=== PATIENT | male | born 1970 | race Caucasian/White ===

== ENCOUNTER 2024-11-12 06:21 | Inpatient (IN) ==
--- NOTE | 2024-08-28 16:25 | History & Physical Report ---
Date of Service August 28, 2024 Assessment & Plan (1) Osteoarthritis of right hip: Plan: PRE-OP Diagnosis: Right hip osteoarthritis Planned Procedure: Right total hip arthroplasty PLAN: Patient is scheduled to undergo this procedure at the [facility] with a 23-hour observation admission with Dr. Beckham on July. Risks and complications of the procedure such as: Infection, bleeding, pain, scarring, nerve blood vessel damage, weakness, wound problems, stiffness, incomplete relief of symptoms, hardware failure, hardware loosening, wear, fracture, tendon or ligament injury, dislocation, leg length inequality, blood clots, Embolism, heart attack, stroke and were explained to the patient at his visit today. Informed consent to perform the procedure was obtained. An order form was sent to the shelter and patient obtained a CBC with differential, complete metabolic panel, PT/INR, blood type and screen, urinalysis, urine culture and sensitivity, EKG, and a nasal culture for MRSA. Patient was also cleared by the medical provider at the institution. Patient states that he plans on doing therapy once a month when the physical therapist comes to the present otherwise, he plans on doing it on his own.. . Patient will be provided with a walker, raised toilet seat, shower chair and a hip kit by the medical staff at the present. During today's visit we reviewed the total hip packet as well as precautions. We discussed discharge planning from the hospital. I advised the patient that upon discharge from hospital we will prescribe a narcotic pain medication and anti-inflammatory. Patient will also be on an 81 mg aspirin twice daily for blood clot prevention. Patient will be scheduled for 2-week postoperative follow-up visit with myself on September 29 at 1:30 PM. This chart was completed utilizing Geliy[employer] voice recognition software. Grammatical errors, random word insertions, pronoun errors, and in complete sentences are an occasional consequence of the system. Any questions or concerns about the content, text, or information contained within the body of this dictation should be addressed directly to the physician for clarification. History of Present Illness Chief Complaint: Chief Complaint: Right hip pain Primary Care Provider: PERLA Perez History of Present Illness (including history relevant to procedure): This 54-year-old male inmate from [facility] [place] presents to the clinic today for his preoperative history and physical. Patient complains of a 2-year history of significant right sided hip pain that affects his groin lateral and posterior aspect of his hip. Patient states he has tried oral steroids, oral anti- inflammatories and some therapy that he did on his own with without relief of his pain. He states that now he is unable to do his normal workouts and noticed his that he has significant limitations with rotation of his hip. Patient is electing to proceed with surgical interventions at this time. Review Of Systems: A 12 point review of systems is performed and is unremarkable except for those things stated in the HPI past medical history. Past Medical History: Problems: Arthritis of right hip Rheumatoid disease HTN (hypertension) Right hip pain Hypercholesterolemia Procedure History Procedure Procedure Date Comments right inguinal hernia repair Allergies and Sensitivities: NKA Current Home Meds: (Last Updated 08/28 13:02) FLUoxetine 20 mg amLODIPine 10 mg aspirin (Adult Aspirin) 81 mg PO Daily baclofen 20 mg PO diclofenac 50 mg gabapentin 800 mg and 100 mg hydrOXYzine 25 mg lidocaine-prilocaine topical (lidocaine-prilocaine 2.5%-2.5% topical cream) losartan (losartan 100 mg oral tablet) 100 mg PO Daily metoprolol (metoprolol extended release) 25 mg predniSONE 20 mg PO Daily rosuvastatin 10 mg PO Daily Initial Wt: 08/28 94.0 kg 207 lb Allergies Allergy/AdvReac Type Severity Reaction Status Date / Time No Known Drug Allergies Allergy Unknown NONOE Verified 08/27/14 13:49 Home Medications Medication Instructions Recorded Confirmed Type SALSALATE 750 mg PO TID ##0 08/27/14 History Past Med/Surg History Problem List (Updated 08/28/24 @ 16:24 by Anselmo De Jesus PA-C) Osteoarthritis of right hip Inguinal hernia (Chronic) Incarcerated inguinal hernia (Acute) Incarcerated inguinal hernia (Acute) Review of Systems All systems reviewed & are unremarkable except as noted in Subjective Physical Exam Physical Exam: Physical Exam: (relevant to the procedure, including heart and lung evaluation) General:'Alert and oriented x 3 with proper grooming and hygiene Eyes: Pupils are equal reactive to light with accommodation. Extraocular wounds are intact Throat: Posterior pharynx clear with absence of edema, erythema or exudate. Dentition is appropriate. Cardiac: Regular rate and rhythm with no murmurs or gallops appreciated Lungs: Clear to auscultation throughout with no wheezing, rales or rhonchi Abdomen: Mildly obese, nondistended, nontender with NABS Extremities: Right hip: Flexion is limited to 100 degrees, internal rotation to 0 degrees and external rotation to 25 degrees. Logroll test causes discomfort in the groin. Stinchfield test positive. Impingement test positive. Patient walks with antalgic gait Neuro: Cranial nerves II through XII are intact no motor or sensory deficit Skin: Normal in appearance with no open skin areas or discharge Results & Data Diagnostic Findings Studies (relevant to the procedure): 3views [facility] theright [facility]obt[facility] show hip arthritis interval worsening. Femoral head flattened. Cysts accumulated in the bone.
--- NOTE | 2024-09-14 08:31 | Communication Note ---
Patient scheduled for right RODOLFO with Dr Beckham on 09/17/24. Per 09/14/24 phone call with PERLA Perez- patient tested Covid positive 09/10/24. Patient is asymptomatic. Was quarantined x 5 days and now will mask for 5 days per PERLA Perez. Unless surgery is deemed urgent/emergent and medical necessity is provided- patient will need rescheduled to 09/21/24 or later. Surgeon's office and PERLA Perez informed.
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
[~2024-11-12 06:21] MED LIST: ROPIVACAINE 0.5% HCL/PF 246 MG, Ketorolac (*for OR use only*) 30 MG, EPINEPHrine 30MG/3... INFIL SCH
[2024-11-12] MEDS ORDERED: BUPIVACAINE 0.5 % 5 MG/1 ML PF 10ML VIAL ONE (06:24)
[2024-11-12] MEDS: ACETAMINOPHEN 500 MG TAB PO SCH ×2 (06:50→15:47)
[2024-11-12] MEDS: traMADol HCL 50 MG TABLET PO SCH (06:51)
[2024-11-12] MEDS: FAMOTIDINE 20 MG TAB PO SCH (06:51)
[2024-11-12] MEDS: CeleBREX 200 MG CAP PO SCH (06:51)
[2024-11-12] MEDS: Scopolamine 1 MG TDSY TD SCH (06:53)
[2024-11-12] MEDS: dexAMETHasone**PF** 10 MG/ML VIAL IV SCH (06:53)
[2024-11-12] MEDS: LR 500ML BOLUS, THEN 15ML/HR IV SCH (06:53)
[2024-11-12] MEDS: LR 60ML/HR IV SCH (06:54)
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
--- OUTSIDE RECORDS SUMMARY | 2024-11-12 07:18 | External Medical Summary | Continuity of Care Document ---
Author Name Unknown Organization [facility] [id number] Address [address] [place] [phone] Care Team Providers Care Manager Loss Prevention Name Role Phone Christine Worrell Primary Care Physician [phone] Encounter [facility] [id number] Date(s): 08/28/24 - 08/28/24 [facility] [address] [id number] [facility] Medicine [address] [place] [id number] Encounter Diagnosis Pre-op evaluation(Discharge Diagnosis) - 08/28/24 Right hip pain(Discharge Diagnosis) - 08/28/24 Discharge Disposition: Home or Self Care Attending Physician: FATOUMATA De Jesus Dennis Referring Physician: MD Chapincito, Deangelo Gunderson Allergies, Adverse Reactions, Alerts No Known Allergies [...] Start Date: 08/28/24 Status: Ordered Mental Status 08/28/24 Barriers to Learning one year None evide nt Mandatory Health Literacy Documentation Yes Health Literacy Communication Barriers N ever Primary Language Indonesian Problem List Condition Confirmation Course Effective Dates Status Health [facility] Informant Arthritis of right hip Confirmed Active Right hip pain Confirmed Active HTN (hypertension) Confirmed Active Rheumatoid disease Confirmed Active Diagnosis Diagnosis Type Effective Dates Health Status Clinical Service Informant Pre-op evaluation Discharge Diagnosis 08/28/24 Right hip pain Discharge Diagnosis 08/28/24 Vital Signs Most recent to oldest [Reference Range]: 1 Height 173 cm (08/28/24 12:54 PM) Patient Weight 94 kg (08/28/24 12:54 PM) Body Mass Index 31.41 kg/m2 (08/28/24 12:54 PM) Temperature [36.5-37.9 DegC] 36.4 DegC *LOW* (08/28/24 12:54 PM) Heart Rate 80 bpm (08/28/24 12:54 PM) Blood Pressure 160/98mmHg (08/28/24 12:54 PM) Cuff Pulse Pressure 62 mmHg (08/28/24 12:54 PM) Social History Social History Type Response Smoking Status Never smoked cigaret reji Sex Male Sex Representation Male (finding) Patient Care team information Care Team Personnel Name: MD Gm, Christine Penn Position: Referring Member Role: Primary Care Provider Address: [facility] Department of [address]
[2024-11-12] MEDS ORDERED: fentaNYL citrate PF 100 MCG/2 ML VIAL ONE (07:57)
[2024-11-12] MEDS ORDERED: MIDAZOLAM HCL 1 MG/ML 2ML VIAL ONE ×2 (07:57→07:58)
[2024-11-12] MEDS ORDERED: fentaNYL citrate PF 100 MCG/2 ML VIAL IV PRN (08:22)
[2024-11-12] MEDS ORDERED: ONDANSETRON INJ 2 MG/ML 2 ML VIAL IV PRN ×2 (08:22→11:53)
[2024-11-12] MEDS ORDERED: ATROPINE SULFATE 0.1 MG/ML 10ML SYR IV PRN (08:22)
[2024-11-12] MEDS ORDERED: ePHEDrine sulfate 50 MG/ML AMP IV PRN (08:22)
--- NOTE | 2024-11-12 09:11 | History & Physical Bridge Note ---
Date of Service November 12, 2024 History & Physical Bridge Note I have examined the patient, reviewed the History & Physical and in the interval since the performance of the History & Physical I have noted the following changes of clinical significance: no changes noted
[2024-11-12] MEDS: TRANEXAMIC ACID 1,000 MG **IV Pre-op IV SCH (09:20)
[2024-11-12] MEDS ORDERED: PROPOFOL IV EMULSION 10 MG/ML 100 ML VIAL IV ONE (09:31)
[2024-11-12] MEDS: ceFAZolin 2000MG 2,000 MG/15 ML SYR IV SCH ×2 (09:49→19:45)
[2024-11-12] MEDS ORDERED: ePHEDrine sulfate 50 MG/ML AMP ONE (10:03)
[2024-11-12] MEDS: ORTHO JOINT ANESTHETIC ONE (10:19)
[2024-11-12] MEDS: ROPIVACAINE 0.5% HCL/PF 246 MG, Ketorolac (*for OR use only*) 30 MG, EPINEPHrine 30MG/3... INFIL SCH (10:19)
[2024-11-12] MEDS: TRANEXAMIC ACID 1,000 MG **IV Intra-op IV SCH (11:05)
--- NOTE | 2024-11-12 11:14 | Operative Report ---
Post Operative Report Pre & Post Diagnosis Operation Date: 11/12/24 08:50 preoperative diagnosis: Right hip osteoarthritis with large supra-acetabular cysts Postoperative diagnosis: Right hip osteoarthritis with large supra-acetabular cysts I identified the patient and participated in the time-out.: Yes Procedure Operation Date: 11/12/24 08:50 1. right total hip arthroplasty 2. bone grafting of supra-acetabular cysts Surgeon Deangelo Beckham MD Coding Validator Kemar Latham DO and JOHNNY De Jesus PA-C Estimated Blood Loss 150 Findings Consistent with Post-Op Diagnosis Specimens right femoral head Anesthesia Type Spinal MAC Complications none Disposition Disposition: Recovery Room Indications 54-year-old male, with right hip osteoarthritis refractory to conservative management. X-rays demonstrate [id number] disease with large cysts in the acetabulum and femoral head, complete destruction of the joint space superiorly, and subchondral sclerosis. Description of Procedure Patient was identified in the preoperative holding area where the surgical site, right hip, was marked. A spinal anesthetic was placed, then the patient was brought back to the main operating room, placed in the operating table and moved into the lateral decubitus position. Axillary roll was placed. All bony prominences were padded. Perioperative antibiotics and tranexamic acid 1 gram IV were administered. The operative extremity was prepped and draped in the normal sterile fashion. Prior to incision a multidisciplinary timeout was called. All in the room were in agreement. We began by making an incision for a posterior approach to the hip. We dissected down through subcutaneous tissues to the level of the fascia. The fascia was incised in line with the incision. Charnley bow was placed. Fatty tissue was reflected posteriorly off the back of the greater trochanter to expose the piriformis and short external rotators of the hip. Quadratus femoris was taken off the femur subperiosteally. The piriformis and short external rotators were dissected off the posterior aspect of the hip. A box cut was made in the capsule. Inferior hip capsule was released off the femur. The femoral head was dislocated. The femoral neck cut was made at our preoperative template. The acetabulum was then exposed. The labrum was sharply excised. Contents of the cotyloid fossa were removed with electrocautery. We then began reaming at a size 8 mm less than our preoperative template. We reamed up by 1 [address] increments [address] the way up to a size 56 mm cup. This gave us good bleeding cancellus bone circumferentially. The acetabulum was then irrigated out, dried and inspected. This demonstrated 2 large supra-acetabular cysts and 1 smaller cyst posterior superior. A curved curette was used to explore the cyst. The 2 larger cyst had quite a deep cavity and approximately 1 cm in diameter and approximately 4 to 6 mm in depth. All the soft tissue was removed with a curved curette. I reirrigated out the acetabulum. We then used bone graft from the acetabular reamings and packed this into the cyst cavities. Next, the real [place] Gription cup was then impacted down into position with 45 degrees of lateral opening and 25 degrees of anteversion. A single cancellous bone screw was placed up into the ilium. Excellent fixation was obtained. A trial liner for a 36 mm femoral head was then placed. Next we turned our attention to the femur. The lateral neck was removed with a box osteotome. Intramedullary guide was used to establish the intramedullary canal. We then broached all the way up to a size 3. We began trialing with a high offset neck and a +8.5 head. Hip was reduced. Leg lengths were symmetric. The hip was stable in extension and external rotation, and stable in the sleeper position. At 90 degrees of hip flexion the hip could be internally rotated 55 degrees before levering out of the cup. I was very happy with the stability exam. Therefore the hip was dislocated and the femoral trial was r emoved. The acetabulum was re-exposed, and the trial liner was removed. [place] hole eliminator screw was placed. An Altrx polyethylene liner for a 36 mm femoral head was then impacted into the shell. The locking mechanism was checked to ensure that it had engaged which it had. The femur was re-exposed. The femoral canal was irrigated and dried. The real Actis femoral stem was opened up. This was impacted down into position. The femoral head was opened up and gently impacted down onto the trunnion. The hip was atraumatically reduced. Another 1 gram of IV tranexamic acid was started prior to closure. The wound was irrigated out with sterile Betadine solution. The periarticular injection cocktail was then placed. The short external rotators, piriformis, and posterior capsule were repaired through drill holes in the greater trochanter using #2 Vicryl. The fascia was run with a looped #1 PDS. The subcutaneous layer was closed with #1 PDS. The dermal layer was closed with 2-0 Vicryl. Zip line was used for the skin followed by a Silverlon dressing. A compressive dressing was then placed. The patient was then rolled supine. Leg lengths were rechecked and were symmetric. An abduction pillow was placed. Sedation was lifted and the patient was transferred to the recovery room in stable condition. Summary of implants: Depuy [place] Gription Acetabular Shell Sector Cup, 56 mm outer diameter [place] Cancellous bone screw, 6.5 x 35 mm Topanga hole eliminator [place] Altrx Polyethylene Acetabular Liner, Neutral, with a 36 mm inner diameter DePuy Actis collared cementless Femoral stem, 12/14 taper, size 3 high offset 36 mm ceramic femoral head with +8.5 offset Postoperative course: Patient will be admitted overnight from the recovery room. Patient will be weightbearing as tolerated with posterior hip precautions. Aspirin for DVT prophylaxis I attest to the content of the Intraoperative Record and any orders documented therein. Any exceptions are noted below.
[2024-11-12] MEDS ORDERED: PROPOFOL IV EMULSION 10 MG/ML 20 ML VIAL IV ONE ×2 (11:37)
[2024-11-12] MEDS ORDERED: METOCLOPRAMIDE HCL INJ 5 MG/ML 2 ML VIAL IV PRN (11:53)
[2024-11-12] MEDS ORDERED: MAGNESIUM HYDROXIDE SUSP 30 ML UDC PO PRN (11:53)
[2024-11-12] MEDS ORDERED: bisacodyL 10 MG SUPP PR PRN (11:53)
[2024-11-12] MEDS ORDERED: ALUMINUM/MAGNESIUM SUSP 30 ML UDC PO PRN (11:53)
[2024-11-12] MEDS ORDERED: TAMSULOSIN HCL 0.4 MG CAP PO PRN (11:53)
[2024-11-12] MEDS ORDERED: NALOXONE HCL 0.4 MG/1 ML VIAL/CARP IV PRN (11:53)
[2024-11-12] MEDS ORDERED: diphenhydrAMINE 50 MG/ML VIAL IV PRN (11:53)
--- NOTE | 2024-11-12 11:53 | Operative Report ---
Post Operative Report Pre & Post Diagnosis Operation Date: 11/12/24 08:50 Pre-Op Diagnosis: Right Hip Osteoarthritis Post-Op Diagnosis: Right Hip Osteoarthritis I identified the patient and participated in the time-out.: Yes Procedure Operation Date: 11/12/24 08:50 Actual Procedures p Right Total Hip Arthroplasty with Bone Grafting of Supraacetabular, Unceme nted(Right) - Deangelo Beckham MD Surgeon Deangelo Beckham MD Production Administrative Assistant Kemar Latham DO and JOHNNY De Jesus PA-C Estimated Blood Loss 150 Findings Consistent with Post-Op Diagnosis Specimens femoral head Description of Procedure I was present during the entire case assisting with positioning, prepping, draping, wound retraction, wound closure, dressing and abduction pillow pl acement. Fellow also present. I served as an extra set of hands during the case. Please see Dr. Beckham procedure note for specifics of the case. I attest to the content of the Intraoperative Record and any orders documented therein. Any exceptions are noted below.
--- NOTE | 2024-11-12 11:53 | Operative Report ---
Post Operative Report Pre & Post Diagnosis Operation Date: 11/12/24 08:50 Pre-Op Diagnosis: Right Hip Osteoarthritis Post-Op Diagnosis: Right Hip Osteoarthritis I identified the patient and participated in the time-out.: Yes Procedure Operation Date: 11/12/24 08:50 Actual Procedures p Right Total Hip Arthroplasty with Bone Grafting of Supraacetabular, Unceme nted(Right) - Deangelo Beckham MD Surgeon Deangelo Beckham MD Enterprise Application Analyst Kemar Latham DO and JOHNNY De Jesus PA-C Estimated Blood Loss 150 Findings Consistent with Post-Op Diagnosis Specimens Right femoral head Description of Procedure The patient was brought to the operative suite where he underwent sedation after undergoing spinal anesthesia preoperatively. He was positioned in the left lateral decubitus position. The right lower extremity was prepped and draped in the usual sterile fashion. A surgical timeout was performed. Patient underwent a right total hip arthroplasty with supra-acetabular cyst bone grafting. Please see Dr. Beckham's operative report for full details. I was present and assisted with patient positioning, limb positioning, soft tissue retraction, hemostasis, hardware placement, wound closure, postoperative dressing placement. The patient was awakened and taken to the recovery room in satisfactory condition I attest to the content of the Intraoperative Record and any orders documented therein. Any exceptions are noted below.
[2024-11-12] MEDS ORDERED: ONDANSETRON INJ 2 MG/ML 2 ML VIAL ONE (11:54)
[2024-11-12] MEDS ORDERED: METOPROLOL TARTRATE 25 MG TAB PO PRN (11:56)
--- NOTE | 2024-11-12 12:40 | XRay Report ---
XR pelvis 1-2V routine CLINICAL HISTORY: In PACU - Post Surgical COMPARISON: 08/28/2024 FINDINGS: Interval right hip prosthesis shows no hardware complication. There is expected soft tissu e gas. Stable multiple small metallic foreign bodies at the right mid thigh. IMPRESSION: Unremarkable postoperative exam. ACT 112: Negative or not required by law. Electronically signed by: Rambo Nina M.D. 11/12/2024 12:38 PM
--- NOTE | 2024-11-12 12:53 | Anesthesiology Progress Note ---
Date of Service November 12, 2024 Anesthesia Post Procedure Vital Signs Vital Signs: Temp Pulse Resp BP Pulse Ox O2 Del Method O2 Flow Rate 11/12/24 12:20 72 19 142/88 H 96 Room Air 11/12/24 12:10 72 15 106/75 94 Oxymask 5 11/12/24 12:00 71 15 95/70 L 94 Oxymask 5 11/12/24 11:52 36.5 C 76 15 93/72 L 94 Oxymask 5 11/12/24 06:41 36.5 C 143/97 H Pain Intensity Right Hip: Pain Intensity: 9 Transfer of Care Handoff Completed per policy Notes Mental Status: alert / awake / arousable Patient Amnestic to Procedure: Yes Nausea / Vomiting: adequately controlled Pain: adequately controlled Airway Patency, RR, SpO2: stable & adequate BP & HR: stable & adequate Hydration State: stable & adequate Neuraxial Anesthesia: was administered and sensory block is resolving Anesthetic Complications: no major complications apparent and Pt Satisfied with anesthetic care
[2024-11-12] MEDS: KETOROLAC TROMETHAMINE 15 MG/ML VIAL IV SCH (15:48)
[2024-11-12] MEDS: GABAPENTIN 800 MG TAB PO SCH (15:48)
[2024-11-12] MEDS: Scopolamine CHECK PATCH PLACEMENT SCH (15:48)
[2024-11-12] MEDS: oxyCODONE HCL IR 5 MG TAB (IMMEDIATE RELEASE) PO PRN (17:45)
[2024-11-12] MEDS: BACLOFEN 20 MG TAB PO SCH (20:37)
[2024-11-12] MEDS: DOCUSATE SODIUM 100 MG CAP PO SCH (20:37)
[2024-11-12] MEDS: SENNA 8.6 MG TAB PO SCH (20:38)
[2024-11-12] MEDS: FLUoxetine HCL 20 MG CAP PO SCH (20:39)
[2024-11-12] MEDS: hydrOXYzine HCl 25 MG TAB PO SCH (20:39)
[2024-11-12] MEDS: ROSUVASTATIN CALCIUM 10 MG TAB PO SCH (20:40)
[2024-11-13 06:05] LABS: Basophils # (auto) 0.02 K/uL (0.00-0.20); Basophils % (auto) 0.1 %; Hematocrit (blood only) 33.9 % (42.0-52.0); Hemoglobin 11.7 g/dl (14.0-18.0); Immature Granulocytes # (auto) 0.09 K/uL (0.01-0.20); Immature Granulocytes % (auto) 0.6 %; Lymphocytes # (auto) 0.62 K/uL (1.20-3.40); Lymphocytes % (auto) 4.1 %; Mean Corpuscular Hemoglobin 30.3 pg (25.0-34.0); Mean Corpuscular Hgb Conc 34.5 g/dL (32.0-36.0); Mean Corpuscular Volume 87.8 fL (80.0-100.0); Mean Platelet Volume 8.4 fL (9.4-12.4); Monocytes # (auto) 1.32 K/uL (0.11-0.59); Monocytes % (auto) 8.7 %; Neutrophils # (auto) 13.06 K/uL (1.40-6.50); Neutrophils % (auto) 86.5 %; Platelet Count 252 K/uL (130-400); RDW Coefficient of Variation 13.4 % (11.5-14.5); RDW Standard Deviation 43.1 fL (36.4-46.3); Red Blood Count 3.86 M/uL (4.70-6.10); White Blood Count 15.11 K/ul (4.8-10.8)
[2024-11-13 06:32] LABS: BUN Creatinine Ratio 16.5 (10-20); Calcium 8.8 mg/dl (8.6-10.3); Creatinine Clr Calc Pharmacy 109.1 ml/min; Potassium 4.3 mmol/L (3.5-5.1)
[2024-11-13 07:27] VITALS: RESP 16
[2024-11-13] MEDS: dexAMETHasone 4 MG TAB PO SCH (10:02)
[2024-11-13] MEDS: amLODIPine BESYLATE 5 MG TAB PO SCH (10:02)
[2024-11-13] MEDS: ASPIRIN 81 MG ECTAB PO SCH (10:02)
[2024-11-13] MEDS: LOSARTAN POTASSIUM 50 MG TAB PO SCH (10:03)
[2024-11-13] MEDS: CeleBREX 200 MG CAP PO SCH (10:03)
[2024-11-13] MEDS: MULTIVITAMIN TAB PO SCH (10:03)
--- NOTE | 2024-11-13 10:16 | Orthopedic Progress Note ---
Date of Service November 13, 2024 Assessment & Plan (1) S/P total hip arthroplasty: Plan: Total hip precautions reviewed Weightbearing as tolerated with walker assistance. Please provide the patient with a walker, preferably with wheels on the front. Also please provide him with a cane which she will most likely transition to in about a week Pain control with p.o. medication. Oxycodone 5 mg 1 to 2 tablets every 4-6 hours as needed for pain Ice 4-5 times a day for 15 to 20-minute intervals Keep Silverlon dressing in place Abduction pillow use x 6 weeks No work for at least 2 weeks DVT prophylaxis with aspirin and LOUISE stockings Will need a bottom bunk Should probably keep in the [facility] for the next 3 to 5 days Additional medications are listed in prescription portion of discharge Follow-up at [facility] orthopedics as previously scheduled With questions in regards to the patient and contact our clinic at [phone] Admission and Anticipated Discharge Date Admission Date: November 12, 2024 Subjective This 54-year-old male inmate from [facility] is day 1 status post right total hip arthroplasty. Patient states that he is doing fairly well. He states that he has been able to transition from his bed to the bedside chair and ambulate to the bathroom multiple times without assistance. He states that his pain as well controlled with p.o. pain medication. He is hoping to be discharged back to the long term later today. Currently he denies chest pain, shortness of breath, fever, chills, sweats, nausea, vomiting, diarrhea or numbness or tingling in his right lower extremity. Review of Systems Review of Systems: All systems reviewed & are unremarkable except as noted in Subjective Physical Exam Physical Exam: Right hip: Outer dressing was removed. Silverlon was saturated. I removed the Silverlon and part of the zipper line peeled up. I replaced the Cipro line and added an additional Silverlon dressing. I placed a ABD pad over the dressing and lightly compressed it with the sixes Gee bandage. Advised patient he may remove this tomorrow. There was no active bleeding from the incision site currently. Patient was able to perform active straight leg raise test. He is able to actively dorsi and plantarflex foot. His peripheral pulses are 2+. He tolerated light passive hip flexion and 80 degrees and only felt a slight tugging sensation with light passive internal rotation. No discomfort with passive external rotation. His quad strength was 3+ out of 5. He is neurovascularly intact in the right lower extremity and easily transition from a seated to a standing position with walker assistance. Results & Data Vital Signs (Past 12 Hours) Vital Signs Temp Pulse Resp BP BP Pulse Ox O2 Del Method 11/13/24 07:27 36.5 C 65 16 141/85 H 96 Room Air 11/13/24 03:00 36.5 C 74 18 148/84 H 94 Room Air 11/12/24 23:00 36.4 C L 81 18 135/72 93 Room Air Diagnostic Findings Laboratory Results WBC 15.11 K/ul (4.8-10.8) H 11/13/24 05:37 RBC 3.86 M/uL (4.70-6.10) L 11/13/24 05:37 Hgb 11.7 g/dl (14.0-18.0) L 11/13/24 05:37 Hct 33.9 % (42.0-52.0) L 11/13/24 05:37 MCV 87.8 fL (80.0-100.0) 11/13/24 05:37 MCH 30.3 pg (25.0-34.0) 11/13/24 05:37 MCHC 34.5 g/dL (32.0-36.0) 11/13/24 05:37 RDW Std Deviation 43.1 fL (36.4-46.3) 11/13/24 05:37 RDW Coeff of Evelia 13.4 % (11.5-14.5) 11/13/24 05:37 Plt Count 252 K/uL (130-400) 11/13/24 05:37 MPV 8.4 fL (9.4-12.4) L 11/13/24 05:37 Immature Gran % (Auto) 0.6 % 11/13/24 05:37 Neut % (Auto) 86.5 % 11/13/24 05:37 Lymph % (Auto) 4.1 % 11/13/24 05:37 Cassia % (Auto) 8.7 % 11/13/24 05:37 Eos % (Auto) 0.0 % 11/13/24 05:37 Baso % (Auto) 0.1 % 11/13/24 05:37 Neut # (Auto) 13.06 K/uL (1.40-6.50) H 11/13/24 05:37 Lymph # (Auto) 0.62 K/uL (1.20-3.40) L 11/13/24 05:37 Cassia # (Auto) 1.32 K/uL (0.11-0.59) H 11/13/24 05:37 Eos # (Auto) 0.00 K/uL (0.00-0.50) 11/13/24 05:37 Baso # (Auto) 0.02 K/uL (0.00-0.20) 11/13/24 05:37 Immature Gran # (Auto) 0.09 K/uL (0.01-0.20) 11/13/24 05:37 Sodium 135 mmol/L (136-145) L 11/13/24 05:37 Potassium 4.3 mmol/L (3.5-5.1) 11/13/24 05:37 Chloride 102 mmol/L (98-107) 11/13/24 05:37 Carbon Dioxide 27 mmol/L (21-32) 11/13/24 05:37 Anion Gap 6 (3-11) 11/13/24 05:37 BUN 14 mg/dl (6-23) 11/13/24 05:37 Creatinine 0.85 mg/dl (0.6-1.4) 11/13/24 05:37 Est Cr Clr Drug Dosing 109.1 ml/min 11/13/24 05:37 eGFR 101.98 11/13/24 05:37 BUN/Creatinine Ratio 16.5 (10-20) 11/13/24 05:37 Glucose 126 mg/dl (70-99(Fasting)) H 11/13/24 05:37 Calcium 8.8 mg/dl (8.6-10.3) 11/13/24 05:37 Nasal Screen MRSA (PCR) Negative (Negative) 11/12/24 Unknown SARS-CoV-2, RNA, NAAT NEGATIVE (NEGATIVE) 11/12/24 06:35 Blood Type O Positive 11/12/24 06:46 Antibody Screen NEGATIVE 11/12/24 06:46 Impressions Pelvis X-Ray 11/12/24 11:53 XR pelvis 1-2V routine CLINICAL HISTORY: In PACU - Post Surgical COMPARISON: 08/28/2024 FINDINGS: Interval right hip prosthesis shows no hardware complication. There is expected soft tissue gas. Stable multiple small metallic foreign bodies at the right mid thigh. IMPRESSION: Unremarkable postoperative exam. ACT 112: Negative or not required by law. Electronically signed by: Rambo Nina M.D. 11/12/2024 12:38 PM
[2024-11-13] MEDS: KETOROLAC TROMETHAMINE 15 MG/ML VIAL ONE (10:22)
--- NOTE | 2024-11-13 10:35 | Discharge Summary ---
Date of Service November 13, 2024 Admission HPI Per Admitting Provider History of Present Illness (including history relevant to procedure): This 54-year-old male inmate from [facility] presents to the clinic today for his preoperative history and physical. Patient complains of a 2-year history of significant right sided hip pain that affects his groin lateral and posterior aspect of his hip. Patient states he has tried oral steroids, oral anti- inflammatories and some therapy that he did on his own with without relief of his pain. He states that now he is unable to do his normal workouts and noticed his that he has significant limitations with rotation of his hip. Patient is electing to proceed with surgical interventions at this time. Review Of Systems: A 12 point review of systems is performed and is unremarkable except for those things stated in the HPI past medical history. Past Medical History: Problems: Arthritis of right hip Rheumatoid disease HTN (hypertension) Right hip pain Hypercholesterolemia Procedure History Procedure Procedure Date Comments right inguinal hernia repair Allergies and Sensitivities: NKA Current Home Meds: (Last Updated 08/28 13:02) FLUoxetine 20 mg amLODIPine 10 mg aspirin (Adult Aspirin) 81 mg PO Daily baclofen 20 mg PO diclofenac 50 mg gabapentin 800 mg and 100 mg hydrOXYzine 25 mg lidocaine-prilocaine topical (lidocaine-prilocaine 2.5%-2.5% topical cream) losartan (losartan 100 mg oral tablet) 100 mg PO Daily metoprolol (metoprolol extended release) 25 mg predniSONE 20 mg PO Daily rosuvastatin 10 mg PO Daily Initial Wt: 08/28 94.0 kg 207 lb Admission Exam Per Admitting Provider Physical Exam: (relevant to the procedure, including heart and lung evaluation) General:'Alert and oriented x 3 with proper grooming and hygiene Eyes: Pupils are equal reactive to light with accommodation. Extraocular wounds are intact Throat: Posterior pharynx clear with absence of edema, erythema or exudate. Dentition is appropriate. Cardiac: Regular rate and rhythm with no murmurs or gallops appreciated Lungs: Clear to auscultation throughout with no wheezing, rales or rhonchi Abdomen: Mildly obese, nondistended, nontender with NABS Extremities: Right hip: Flexion is limited to 100 degrees, internal rotation to 0 degrees and external rotation to 25 degrees. Logroll test causes discomfort in the groin. Stinchfield test positive. Impingement test positive. Patient walks with antalgic gait Neuro: Cranial nerves II through XII are intact no motor or sensory deficit Skin: Normal in appearance with no open skin areas or discharge Principal Diagnosis Right hip avascular necrosis Discharge Exam Right hip: Outer dressing was removed. Silverlon was saturated. I removed the Silverlon and part of the zipper line peeled up. I replaced the Cipro line and added an additional Silverlon dressing. I placed a ABD pad over the dressing and lightly compressed it with the sixes Gee bandage. Advised patient he may remove this tomorrow. There was no active bleeding from the incision site currently. Patient was able to perform active straight leg raise test. He is able to actively dorsi and plantarflex foot. His peripheral pulses are 2+. He tolerated light passive hip flexion and 80 degrees and only felt a slight tugging sensation with light passive internal rotation. No discomfort with passive external rotation. His quad strength was 3+ out of 5. He is neurovascularly intact in the right lower extremity and easily transition from a seated to a standing position with walker assistance. Discharge Data Allergies Allergy/AdvReac Type Severity Reaction Status Date / Time No Known Drug Allergies Allergy Unknown Verified 11/12/24 06:38 Procedures Performed Operation Date: 11/12/24 08:50 Actual Procedures p Right Total Hip Arthroplasty with Bone Grafting of Supraacetabular, Uncemented(Right) - Deangelo Beckham MD Hospital Course (1) S/P total hip arthroplasty: Patient had an uneventful overnight stay following right total hip arthroplasty. He will be discharged back to [facility]. He will be housed in the [facility] for at least the next 5 days. I put specific instructions on providing him with a walker, icing and the medications he is to be taking. He will follow-up as scheduled in our office for his 2-week postoperative follow-up. Total hip precautions reviewed Weightbearing as tolerated with walker assistance. Please provide the patient with a walker, preferably with wheels on the front. Also please provide him with a cane which she will most likely transition to in about a week Pain control with p.o. medication. Oxycodone 5 mg 1 to 2 tablets every 4-6 hours as needed for pain Ice 4-5 times a day for 15 to 20-minute intervals Keep Silverlon dressing in place Abduction pillow use x 6 weeks No work for at least 2 weeks DVT prophylaxis with aspirin and LOUISE stockings Will need a bottom bunk [facility] the [facility] 3 to 5 days Additional medications are listed in prescription portion of discharge Follow-up at [facility] orthopedics as previously scheduled With questions in regards to the patient and contact our clinic at [phone] Total Time Total Time Spent Total Time Spent (In Minutes): 40 mins Discharge Plan Discharge Items [facility] Disposition: [facility] Reason For Visit: Right Hip Osteoarthritis Discharge Diagnosis: s/p Right total hip arthroplasty Activity: As commented below Lifting: None Bathing: Keep incision dry Bathing Comment: May shower later today Sexual Activity: Wait until after follow-up appointment Exercise/Sports: Wait until after follow-up appointment Weightbearing: Right weightbearing Weightbearing Comment: As tolerated with walker assistance Non-emergency contact: Surgeon Call non-emergency contact if: you have any medication questions, your pain is not controlled, your temperature is above 101.5, your wound has increased drainage and your wound pain has increased Follow-up/Referrals: Ana DUNCAN [Primary Care Provider] - Diet: Regular Addtl Attending Provider Instructions: Post-operative Instructions Dear Patient and Family/Friends, Before you are discharged from the hospital, it is important to know what to expect when you get home after surgery. To that end, we have created this sheet of discharge instructions which covers many commonly asked questions. Make sure you go through this sheet in its entirety with your nurse before you are discharged. Please note that we will go over the specifics of your surgery and recovery when you return for your first post-operative visit. Sincerely, Dr. Beckham Medications (To be provided by pharmacy at [facility]) 1. Oxycodone 5 mg: Take 1-2 tabs every 4-6 hours as needed for postoperative pain control. 2. Naproxen 500 mg: Take 1 tab twice daily for postoperative pain and inflammation relief 3. Aspirin 81 mg: Take 1 tab twice daily for 30 days postoperatively for blood clot prevention 4. Extra strength Tylenol 500 mg: Take 2 tabs every 6-8 hours as needed for additional pain relief Pain Expect to be in a fair amount of pain after surgery. Remember, our goal is not to eliminate your pain, but to make it tolerable. It is a good idea to stay ahead of your pain by taking the medications you were prescribed once you get home. Typically, the pain starts improving 3-7 days after surgery. You should start weaning off the narcotic pain medication (oxycodone, hydrocodone, hydromorphone, morphine) as soon as your pain improves. Please call our office if your pain is not adequately controlled. Ice Ice your operative site at least 5 times a day for 15-30 minutes at a time. Make sure you have a thin cloth between the ice or cooling unit and your skin to prevent moy bite. This is especially important if you received a nerve block. Continue icing your operative site for the first 5-7 days after surgery, then as needed. Diet/Nausea/Vomiting Start by drinking clear liquids and eating crackers. If you can tolerate this, then you may resume your normal diet. If you feel nauseated or vomit, take Zofran/ondansetron (if prescribed). Please call our office if you have intractable nausea or vomiting, or, if after hours, you may go to the Emergency Room for help. Constipation Constipation is a common side effect of narcotic pain medication. If you have not had a bowel movement within 2 days after surgery, we recommend purchasing an over the counter laxative such as Milk of Magnesia, Dulcolax, or Miralax from a local pharmacy, and taking it as instructed. Call our clinic if any questions. Nerve block The anesthesia team sometimes places a nerve block to help with post-operative pain control. This results in significant numbness and inability to move the extremity. The nerve block usually wears off in 8-12 hours, but sometimes can last up to 24 hours. Please call our office if you are still unable to move your extremity after 24 hours, unless you received a pain pump to take home. Nerve blocks typically wear off quickly, so start taking pain medication as soon as you start feeling soreness near your surgical site. Weight bearing and Range of Motion. Do not bear any weight through your operative extremity immediately after surgery. If you had upper extremity surgery, do not lift anything with that arm. If you are in a knee brace, keep it locked in place until your follow-up. We will discuss your weight bearing, range of motion, and lifting restrictions in detail at your first post-operative appointment. Continuous Passive Motion (CPM) Machine If you were prescribed a CPM machine, it will start after your first post- operative appointment, at which time we will give you instructions on the range of motion settings and duration of treatment Physical therapy You will be given a prescription for physical therapy or occupational therapy at your first post-operative appointment. Typically, patients start therapy within 1 week of surgery Wound care and showering We will inspect your wound at your first post-operative visit, and may do a dressing change at that time. Most patients will be in a water-proof dressing that is removed 14 days after surgery. It is normal to see some dried blood on the dressing. Do not remove your dressing, paper strips or sutures yourself unless you are given permission. Showering is allowed the day after surgery. Do not scrub or remove any dressings. The wound should not be submerged underwater (i.e. in a bathtub or pool) until 4 weeks after surgery LOUISE stockings If you were given white stockings, these are to be worn at all times except to shower (on both legs) for the first 2 weeks after surgery. Driving You may not drive while taking narcotic pain medication or while in a cast, splint, sling or brace. You, the patient, need to make the final determination about when you are safe to drive, however, the earliest you may consider driving after surgery is below: Hand/Wrist/Elbow Surgery: 3 days Shoulder Surgery: 2 weeks Hip,/Knee/Ankle Surgery: 4 weeks Fracture repair: 6 weeks Return to Work Your return to work depends on what surgery was done and what type of work you do. Please bring any paperwork your employer needs completed to your first post-operative visit. Also, bring a description of your job duties, as this helps us to understand what risks you may face at work. Travel Avoid long distance travel (greater than 1 hour) in airplanes and cars for the first 6 weeks after surgery. If you must travel, you need to have a Doppler ultrasound done before you travel to rule out a blood clot in your legs. Follow-up You should have a follow-up appointment already scheduled 1-2 days after surgery. If not, please contact our office to make this appointment before you leave the hospital. When to call the office It is normal to have swelling and bruising in the limb that was operated on. This will improve with time. It is also normal to have fevers for the first 2 days after surgery. Reasons you should call your doctor include: Uncontrolled pain; Nausea, vomiting, or constipation that does not improve with medication; Fevers over 101.5, chills, sweats; Drainage or bleeding from the wound; Foul odor; Spreading areas of redness; Any other concerns. Contact Information Please call Dr. Beckham's office at [phone] with any concerns. Pending Studies at Discharge: No Skilled Items Patient informed of condition?: Yes Discharge Level of Care: Other Communicable Disease: No Discharge Prognosis: Stable Lines: None Urinary Catheter: No Medications and DC Order Prescriptions: New aspirin 81 mg Tablet,Delayed Release (Dr/Ec) 81 mg PO BID 30 Days Qty: 60 0RF acetaminophen [Tylenol Extra Strength] 500 mg Tablet 1,000 mg PO Q8 30 Days Qty: 180 0RF oxycodone 5 mg Tablet 5 - 10 mg PO Q4H PRN (Reason: Postoperative pain control) Qty: 28 0RF naproxen 500 mg tablet 500 mg PO BID 30 Days Qty: 60 0RF Continued hydroxyzine pamoate 50 mg Capsule 50 mg PO BID lidocaine-prilocaine 2.5-2.5 % Cream 1 applic topical TID amlodipine 10 mg Tablet 10 mg PO DAILY fluoxetine [Prozac] 20 mg Capsule 40 mg PO HS diclofenac sodium 1 % Gel 2 g TOPICAL QID PRN (Reason: Pain) Rx Instructions: apply to single elbow, wrist or hand; for hand includes palm/fingers/back of hand losartan 100 mg Tablet 100 mg PO DAILY rosuvastatin 10 mg Tablet 10 mg PO HS metoprolol tartrate 25 mg Tablet 25 mg PO BID PRN (Reason: Palpitations) baclofen 20 mg Tablet 20 mg PO BID gabapentin 800 mg Tablet 800 mg PO TID Discontinued aspirin 81 mg Tablet,Chewable 81 mg PO DAILY diclofenac sodium 50 mg Tablet,Delayed Release (Dr/Ec) 50 mg PO TID oxycodone-acetaminophen 5-325 mg Tablet 1 tab PO BID PRN (Reason: Pain) Discharge Orders: Discharge Order (Routine); Ordered 11/13/24 Ordered By: Anselmo De Jesus Admission Data Admit Date/Time: 11/12/24 11:53 Attending Provider: Deangelo Beckham Admit Provider: Deangelo Beckham Primary Care Provider: Ana DUNCAN
[2024-11-13 11:28] VITALS: TEMP 97.7; O2SAT 96
[2024-11-13 11:32] VITALS: BP 148/84; PULSE 66
== END 2024-11-13 13:15 | DRG 470 ==
LOC: ASU 06:21 → 3E 11:53